=== PATIENT | female | born 1970 | race Caucasian/White ===

== ENCOUNTER → 2016-11-12 | Outpatient (CLI) | payer OTHER ==
--- NOTE | 2016-11-12 11:01 | RAD ---
DATE: 11/12/2016 EXAM: DIGITAL DIAGNOSTIC LT HISTORY: Left breast nipple discharge. COMPARISON: 02/20/2016 This study was interpreted with the benefit of Computerized Aided Detection (CAD). FINDINGS: MLO and CC digital mammograms left breast were obtained. Comparison study is dated 02/20/2016. The left breast parenchyma is heterogeneously dense which can obscure a lesion on mammography (breast density code C). Benign-appearing calcifications are seen within the left breast. No spiculated mass is seen. No malignant appearing calcification or area of architectural distortion is noted. IMPRESSION: BI-RADS Category 1, negative no mammographic evidence of malignancy. BI-RADS CATEGORY: 1 NEGATIVE RECOMMENDED FOLLOW-UP: 12M 12 MONTH FOLLOW-UP PQRS compliance statement: Patient information was entered into a reminder system with a target due date 02/19/2017 for the next mammogram. Mammography is a sensitive method for finding small breast cancers, but it does not detect them all and is not a substitute for careful clinical examination. A negative mammogram does not negate a clinically suspicious finding and should not result in delay in biopsying a clinically suspicious abnormality. "Our facility is accredited by the [employer] Mammography Program."
--- NOTE | 2016-11-12 11:31 | RAD ---
Ultrasound of the left breast 11/12/2016 Clinical history: Left nipple discharge. Technique: A real-time ultrasound examination of the retroareolar region of the left breast was performed. Multiple images were obtained. Findings: Comparison is made to the patient's diagnostic mammogram performed earlier today. No solid or cystic mass is seen within the visualized portions of the left breast by ultrasound. Mildly dilated ducts are seen in the retroareolar region. Impression: No solid or cystic mass is seen within the visualized portions of the left breast by ultrasound.
== END | disposition home or self-care (01) ==
LOC: MAMMO 10:32
DX: N64.52 Nipple discharge (principal)
CPT/HCPCS: 76641; G0206; 77065

== ENCOUNTER → 2016-11-12 | Outpatient (CLI) | payer OTHER ==
[2016-11-12 12:29] LABS: BASO % 1 % (0-3); EOS % 4 % (0-3); HEMATOCRIT 43.2 % (36.0-47.0); HEMOGLOBIN 14.5 g/dL (12.0-15.5); LYMPH # 1.7 x10^3/uL (1.0-4.8); LYMPH % 32 % (24-48); MEAN CORPUSCULAR HEMOGLOBIN 29 pg (25-35); MEAN CORPUSCULAR HGB CONC 34 g/dL (31-37); MEAN CORPUSCULAR VOLUME 86 fL (79-100); MONO % 10 % (0-9); NEUT % 54 % (31-73); PLATELET COUNT 191 x10^3/uL (140-400); RED BLOOD COUNT 5.03 x10^6/uL (3.50-5.40); RED CELL DISTRIBUTION WIDTH 15.1 % (11.5-14.5); WHITE BLOOD COUNT 5.3 x10^3/uL (4.0-11.0)
[2016-11-12 12:30] LABS: CALCIUM 9.1 mg/dL (8.5-10.1); CREATININE 0.9 mg/dL (0.6-1.0); GFR 67.4; POTASSIUM 4.4 mmol/L (3.5-5.1); TOTAL BILIRUBIN 0.7 mg/dL (0.2-1.0); TOTAL PROTEIN 7.9 g/dL (6.4-8.2)
[2016-11-12 12:31] LABS: CHOLESTEROL/HDL RATIO 2.3
[2016-11-12 17:17] LABS: ESTRADIOL LEVEL 54.5 pg/mL (.); FSH 26.8 mIU/mL (.); LUTEINIZING HORMONE 17.2 mIU/mL (.)
== END | disposition home or self-care (01) ==
LOC: LAB 11:18
DX: Z00.00 Encounter for general adult medical examination without abnormal findings (principal)
CPT/HCPCS: 36415; 80053; 80061; 82670; 83001; 83002; 84443; 85027

== ENCOUNTER → 2017-11-20 | Outpatient (CLI) | payer OTHER | END | disposition home or self-care (01) | LOC: MAMMO 08:23 | DX: Z12.31 Encounter for screening mammogram for malignant neoplasm of breast (principal) | CPT/HCPCS: 77063; 77067 ==

== ENCOUNTER → 2018-03-09 | Outpatient (CLI) | payer OTHER | END | disposition home or self-care (01) | LOC: US 08:53 | DX: N64.52 Nipple discharge (principal) | CPT/HCPCS: 76641 ==

== ENCOUNTER → 2018-06-10 | Outpatient (CLI) | payer OTHER ==
--- NOTE | 2018-06-10 08:45 | RAD ---
Left breast ultrasound, 06/10/2018: History: Follow-up abnormal duct, intermittent bloody discharge Comparison is made to a study from 03/09/2018. There are mildly dilated ducts in the retroareolar region. At the 12:00 location there is a filling defect of medium echogenicity within one of these ducts, best seen in the anterior radial plane. No definite internal color flow is seen within this process. A similar appearance was present on the previous study. The lack of interval change raises the possibility of a mass such as a polyp rather than a blood clot. No new abnormality is detected. IMPRESSION: Persistent filling defect in the duct at the 12:00 location as described above. Biopsy is suggested for further evaluation. This could be performed under ultrasound guidance or during duct exploration following needle localization. Note: The findings were discussed with the patient at the time of the exam and she is aware of the recommendation for biopsy. She will follow up with the ordering physician. BI-RADS 4-suspicious abnormality.
== END | disposition home or self-care (01) ==
LOC: US 07:42
DX: N64.52 Nipple discharge (principal)
CPT/HCPCS: 76641

== ENCOUNTER → 2018-07-17 | Outpatient (CLI) | payer OTHER ==
--- NOTE | 2018-07-21 12:08 | PATHOLOGY ---
[facility] Accession Number: [id number] . 01 Material submitted: . LEFT BREAST . 01 Clinical history: . Left breast abnormality . 02 Diagnosis: Breast, "left breast", needle core biopsies: - Papillary lesion measuring approximately 1 cm in greatest dimension. - Fibrocystic changes with usual ductal hyperplasia without atypia. See comment. . (SHA:forging press setter up; 07/20/2018) MBR/07/20/2018 . 02 Comment: The differential includes papilloma, however, atypical papillary lesions cannot be entirely excluded. Suggest clinical correlation and further evaluation if clinically indicated. . This case is also reviewed by Dr. Liliana Vanessa. . (SHA:forging press setter up; 07/20/2018) . 02 Electronically signed: . Jaswant Milian MD, Pathologist NPI- [id number] . 01 Gross description: . Received in formalin labeled "Paty Torres, left breast," are multiple needle cores of yellow-cisneros fibrofatty tissue measuring 2.0 x 1.6 x 0.4 cm in aggregate dimensions. The tissue submitted in its entirety in cassette A1 through A3. The cold ischemic time is 3 minutes. The total formalin fixation time is 8 hours and 29 minutes. (TSD; 07/17/2018) TOB/TOB . 02 Pathologist provided ICD-10: N60.12, N62 . 02 CPT . 929617 Specimen Comment: A courtesy copy of this report has been sent to Specimen Comment: [phone], , . Specimen Comment: Report sent to ,DR PATE / DR CHI Specimen Comment: A duplicate report has been generated due to demographic updates. Performed at: 01 [facility] [address] [facility] [address], [place] [id number] MD Braxton Robert MD Phone: [phone] Performed at: 02 [facility] [place] [address] [place] [id number] MD Heber Young MD Phone: [phone]
--- NOTE | 2018-07-27 08:42 | RAD ---
Ultrasound-guided left breast biopsy, 07/17/2018: History: Abnormal duct Previous studies demonstrated a suspicious retroareolar duct containing echogenic material. Today's scanning shows that this duct lies near the midline in the retroareolar region. Under local anesthesia, aseptic conditions and sonographic guidance the [facility] Medical biopsy instrument was passed into this process via a lateral approach. Multiple 12-gauge vacuum-assisted core samples were obtained and sent to pathology for evaluation. A biopsy marker was deposited at the biopsy site. The biopsy instrument was then removed and hemostasis obtained. Two-view postprocedural digital mammograms were then obtained to document position of the biopsy marker. The patient tolerated the procedure well and left the department in good condition. The subsequent pathology report indicated the presence of a papillary lesion, possibly a papilloma, although an atypical papillary lesion could not be excluded. This is considered to be concordant finding.
== END | disposition home or self-care (01) ==
LOC: US 13:10
PROVIDERS: ATTEND Surgery
DX: N60.12 Diffuse cystic mastopathy of left breast (principal)
CPT/HCPCS: 19083; 77065; 88305; C1713; 19081; 76942

== ENCOUNTER 2018-08-12 06:52 | Day surgery (SDC) | payer OTHER ==
[~2018-08-12] VITALS: Ht 162.6 cm; Wt 49.9 kg
[~2018-08-12 06:52] MED LIST: MULT1TAB52 PO
[2018-08-12] MEDS ORDERED: ONDANSETRON PF 4 MG/2 ML VIAL. IV PRN (07:00)
[2018-08-12] MEDS ORDERED: MORPHINE SULFATE 2 MG/ML VIAL. IV PRN (07:00)
[2018-08-12] MEDS ORDERED: LIDOCAINE 1% PF 2 ML VIAL. ID PRN (07:00)
[2018-08-12] MEDS ORDERED: IV RINGERS,LACTATED 1000ML 1,000 ML IV SCH (07:00)
[2018-08-12] MEDS ORDERED: PROCHLORPERAZINE 10 MG/2 ML VIAL. IV PRN (07:00)
[2018-08-12] MEDS ORDERED: fentaNYL PF VIAL 100 MCG/2 ML VIAL IV PRN ×2 (07:00)
[2018-08-12] MEDS ORDERED: HYDROmorphone 2 MG/ML VIAL IV PRN (07:00)
[2018-08-12] MEDS ORDERED: CHOL100013 PO (07:21)
[2018-08-12 07:31] LABS: U PREG PATIENT NEGATIVE (NEG)
[2018-08-12] MEDS ORDERED: LIDOCAINE WITH 8.4% SOD BICARB 3 ML DISP.SYRIN. INJ ONE (07:45)
[2018-08-12] MEDS ORDERED: LIDOCAINE 1%/EPI 1:100,000 20 ML VIAL. ONE (08:24)
[2018-08-12] MEDS ORDERED: BUPIVAC MPF-EPI 0.5%-1:200000 30 ML VIAL. ONE (08:24)
[2018-08-12] MEDS ORDERED: LIDOCAINE 2% PF Vial for OR 5 ML VIAL. ONE (08:27)
[2018-08-12] MEDS ORDERED: fentaNYL PF VIAL 100 MCG/2 ML VIAL ONE (08:27)
[2018-08-12] MEDS ORDERED: ONDANSETRON PF 4 MG/2 ML VIAL. ONE (08:27)
[2018-08-12] MEDS ORDERED: PROPOFOL 20 ML IV ONE (08:27)
[2018-08-12] MEDS ORDERED: DEXAMETHASONE SOD PHOS 20 MG/5 ML VIAL. ONE (08:27)
[2018-08-12] MEDS ORDERED: MIDAZOLAM HCL/PF 2 MG/2 ML VIAL. ONE (08:27)
--- NOTE | 2018-08-12 08:48 | RAD ---
Left breast needle localization, 08/12/2018: History: Papilloma We targeted the breast biopsy marker in the retroareolar region directly posterior to the nipple. Under local anesthesia, aseptic conditions and mammographic guidance a Kopan's needle with modified retention wire was passed into this region via a superior approach. The needle was removed and the final images show that the biopsy marker lies directly anterior to the distal aspect of the retention wire between its hook and the distal margin of the thickened portion of the wire approximately 3 cm deep to the skin surface. The patient tolerated the procedure well and was sent to surgery in good condition.
[2018-08-12] MEDS ORDERED: PHENYLEPHRINE in 0.9% NACL PF 1 MG/10 ML SYRINGE. IV ONE (09:08)
--- NOTE | 2018-08-12 10:18 | RAD ---
Left specimen mammogram #1, 08/12/2018: History: Papilloma A single digital mammogram of the surgical specimen from the left breast was obtained. No retention wire or biopsy marker is evident within the specimen. The specimen contains multiple scattered microcalcifications.
--- NOTE | 2018-08-12 10:32 | RAD ---
Left specimen mammogram #2, 08/12/2018: A digital mammogram of a second surgical specimen from the left breast was obtained. The biopsy marker lies within the specimen at the E7 level in the specimen container. Several scattered microcalcifications are also present.
--- NOTE | 2018-08-12 10:35 | PDOC4 ---
Operative Note Operative Note Operative Note: Preoperative Diagnosis: Left breast papillary lesion Postoperative Diagnosis: Same Procedure: Left breast excisional biopsy with needle localization Surgeon: Dereck Crown Ironer Operator: Philomena ROBLEDO Anesthesia: Gen. EBL: 25 mL Specimen: Left breast specimens to pathology Drains: None Complications: None Indication: The patient is a 47-year-old female who was found to have a left breast papillary lesion following a core needle biopsy. From the biopsy the lesion cannot be characterized in terms of atypical features. Based on this we advised for a wider excisional biopsy and needle localization will be required. The details and risks of surgery were discussed with the patient. Risks include bleeding, infection, pain, scar tissue, wound healing problems, potential need for additional surgery or procedure. She understands and would like to proceed. Description: The patient was taken the operating room and placed supine on the operating table. Gen. anesthesia was performed. Left breast was prepped with ChloraPrep and draped in a standard surgical manner. The wire was entering the skin at the junction of the areola in the superior aspect. A small curved incision was made in this location. The wire was directed inferiorly deep to the inferior aspect of the nipple. Sharp dissection was used to follow the wire to its termination. A generous excisional biopsy of tissue in the area was performed and sent to radiology. The specimen radiographs did not clearly identify the clip. C-arm evaluation of the left breast identified the clip. We were able to perform further dissection under guidance of fluoroscopy and eventually excised the area containing the clip. This was sent to radiology and specimen radiographs confirmed the presence of the clip. Hemostasis was achieved with cautery. No other abnormalities were identified. The skin was closed with 4-0 Monocryl and a Steri-Strip was applied. The patient tolerated the procedure well and was sent to the recovery room in stable condition. At the end of the case all counts were correct. CHERYL PATE MD Aug 12, 2018 10:35
--- NOTE | 2018-08-12 10:40 | DISCH ---
DISCHARGE INSTRUCTIONS Condition on Discharge Condition on Discharge: Stable Activity After Discharge Activity Instructions for Disc: Resume previous activity Diet after Discharge Diet after Discharge: Regular Wound Incision Care Wound/Incision Care: Other, see below (keep dressing clean and dry X 72 hours, may then remove and shower) Follow-Up Follow up with: Dr Pate in 1-2 weeks, call for appt [phone] CHERYL PATE MD Aug 12, 2018 10:40
[2018-08-12] MEDS ORDERED: HYDR-3164 PO (10:57)
[2018-08-12] MEDS ORDERED: HYDROcodone/APAP 5/325MG 1 TAB TABLET PO ONE (11:30)
[2018-08-12 12:30] VITALS: BP 106/61
--- NOTE | 2018-08-17 18:08 | PATHOLOGY ---
[facility] Accession Number: [id number] . 01 Material submitted: . PART A: LEFT BREAST TISSUE #1 PART B: LEFT BREAST TISSUE #2 PART C: LEFT BREAST TISSUE #3 . 01 Clinical history: . Papilloma left breast . 02 Diagnosis: A. Breast tissue, left breast tissue excision #1: - Small intraductal papilloma (2 mm). - Previous biopsy site changes showing focal fibrosis, hemosiderin-laden macrophages, and portion of biopsy site marker. - Fibrocystic changes. - Few microcalcifications identified. . B. Breast tissue, left breast tissue excision #2: - Previous biopsy site changes showing fibrosis, few hemosiderin-laden macrophages, and portion of biopsy site marker. - Fibrocystic changes. - Few microcalcifications identified. . C. Breast tissue, left breast tissue excision #3: - Fibrocystic changes with focal mild ductal epithelial hyperplasia without atypia. - Rare microcalcification identified. LBQ/08/17/2018 . 02 Comment: There is no atypia or evidence of malignancy. (JPM/db/master in chancery; 08/17/2018) . 02 Electronically signed: . Heber Young MD, Pathologist NPI- [id number] . 01 Gross description: . A. The specimen is received in formalin, labeled "Paty Torres, 1 left breast tissue" and consists of 2 segments of unoriented yellow-pagan fibroadipose tissue weighing 2 g and measuring 3.5 x 2.3 x 0.4 cm in aggregate. They are inked black and sectioned to reveal dense fibrous cut surfaces. The specimen is entirely submitted in A1-A4. The cold ischemic time is 20 minutes and the total formalin fixation time is greater than 6 hours but less than 72 hours. . B. The specimen is received in formalin, labeled "Paty Torres, 2 left breast tissue" and consists of an unoriented 1 g segment of yellow-pagan fibroadipose tissue measuring 2.2 x 1.8 x 0.3 cm. It is inked black and sectioned to reveal dense fibrous cut surfaces. The specimen is entirely submitted in B1-B2. The specimen was placed in formalin at 10:18 AM on 08/12/18 with no time in formalin provided. The cold ischemic time is unknown, and the specimen is removed from formalin at 6:50 PM on 08/13/18. . C. The specimen is received in formalin, labeled "Maged Torresen, 3 left breast tissue" and consists of 2 segments of yellow-pagan fibroadipose tissue weighing 1 g and measuring 1.9 x 1.8 x 0.8 cm. They're inked black and sectioned to reveal dense fibrous cut surfaces. They are entirely submitted in C1-C2. The cold ischemic time is 9 minutes and the total formalin fixation time is greater than 6 hours but less than 72 hours. (SDY; 08/13/2018) SYU/SYU . 02 Pathologist provided ICD-10: N60.12, N60.32, N62 . 02 CPT . 724808, 599069, 392872 Specimen Comment: A courtesy copy of this report has been sent to Specimen Comment: [phone], . Specimen Comment: Report sent to / DR CHI Performed at: 01 [facility] [address] [facility] [address], [place] [id number] MD Braxton Robert MD Phone: [phone] Performed at: 02 [facility] [address] [place], [place] [id number] MD Heber Young MD Phone: [phone]
== END 2018-08-12 12:43 | disposition home or self-care (01) ==
LOC: SURG 06:52
PROVIDERS: ATTEND Surgery
DX: D24.2 Benign neoplasm of left breast (principal); R92.0 Mammographic microcalcification found on diagnostic imaging of breast; N60.92 Unspecified benign mammary dysplasia of left breast; N60.12 Diffuse cystic mastopathy of left breast; N64.89 Other specified disorders of breast; Z80.0 Family history of malignant neoplasm of digestive organs; Z80.3 Family history of malignant neoplasm of breast; Z80.52 Family history of malignant neoplasm of bladder
CPT/HCPCS: 19281; 76000; 76098; 81025; J0690; J1100; J2001; J2250; J2370; J2405; J2704; J3010; J3490; J7120

== ENCOUNTER → 2021-02-08 | Outpatient (CLI) | payer OTHER ==
[~2021-02-08] MED LIST changes: +CHOL100013 PO; +HYDR-3164 PO; +MULT-445 PO; -MULT1TAB52 PO
--- NOTE | 2021-02-08 14:48 | RAD ---
DATE: 02/08/2021 EXAM: MAMMO EVON DIAG BILAT HISTORY: Follow-up from papilloma excision. COMPARISON: 07/17/2018, 11/20/2017, 11/12/2016, 02/20/2016 and 02/10/2015 This study was interpreted with the benefit of Computerized Aided Detection (CAD). Breast Density: HETERO The breast parenchyma is heterogenously dense, which could reduce sensitivity of mammography. Breast parenchyma level C. FINDINGS: No mass, suspicious calcification, or architectural distortion in either breast. IMPRESSION: No evidence of malignancy. BI-RADS CATEGORY: 1 NEGATIVE RECOMMENDED FOLLOW-UP: 12M 12 MONTH FOLLOW-UP PQRS compliance statement: Patient information was entered into a reminder system with a target due date for the next mammogram. Mammography is a sensitive method for finding small breast cancers, but it does not detect them all and is not a substitute for careful clinical examination. A negative mammogram does not negate a clinically suspicious finding and should not result in delay in biopsying a clinically suspicious abnormality. "Our facility is accredited by the [employer] Mammography Program."
== END ==
LOC: MAMMO 13:22
PROVIDERS: ATTEND Family Medicine
DX: R92.2 Inconclusive mammogram (principal)
CPT/HCPCS: 77066; G0279; 77062

== ENCOUNTER → 2021-03-21 | Day surgery (SDC) | payer OTHER ==
[~2021-03-21] VITALS: Ht 161.3 cm; Wt 50.0 kg
[~2021-03-21] MED LIST changes: +LIDOCAINE 2% PF 5 ML VIAL. ONE; +PROPOFOL 10 MG/ML (20ML) VIAL. IV ONE
[2021-03-21 08:36] VITALS: BP 130/62
[2021-03-21] MEDS: IV RINGERS,LACTATED 1000ML 1,000 ML IV ONE (08:40)
[2021-03-21 09:52] VITALS: BP 99/56
--- NOTE | 2021-03-22 06:01 | HP ---
ADMIT DATE: 03/21/2021 REFERRING PHYSICIAN: Thierry Issa MD REASON: Colorectal screening. HISTORY OF PRESENT ILLNESS: A 50-year-old female seen for colorectal screening. Bowel habits are regular without diarrhea or constipation. There has been no melena or hematochezia. Family history is positive for colon cancer in maternal grandmother in her 60s. Otherwise without additional complaints. PAST MEDICAL HISTORY: Significant for osteoarthritis. ALLERGIES: None. MEDICATIONS: Include vitamin D3, multivitamin. FAMILY HISTORY: Significant for colon cancer in a grandmother and grandfather with pancreatic cancer in his father. Nonsmoker and nondrinker. PAST SURGICAL HISTORY: Status post breast surgery and eye surgery. REVIEW OF SYSTEMS: Per records. PHYSICAL EXAMINATION: GENERAL: Reveals a well-nourished, well-developed female, alert, cooperative, no acute distress. LUNGS: Clear. CARDIAC: S1, S2, without S3, S4 or appreciable murmur. ABDOMEN: Soft abdomen, normal bowel sounds, without appreciable hepatosplenomegaly. EXTREMITIES: No cyanosis, clubbing or edema. IMPRESSION: Colorectal screening. Risks and benefits of procedure including and perforation with operation were discussed. The patient is willing to proceed at this time. DORA/ROYAL DR: Geoffrey TID: [id number]
== END | disposition home or self-care (01) ==
LOC: ENDOS 08:03
PROVIDERS: ATTEND Internal Medicine Gastroenterology
DX: Z12.11 Encounter for screening for malignant neoplasm of colon (principal); K64.0 First degree hemorrhoids; K63.89 Other specified diseases of intestine; M19.90 Unspecified osteoarthritis, unspecified site; Z79.899 Other long term (current) drug therapy; Z80.0 Family history of malignant neoplasm of digestive organs; Z98.890 Other specified postprocedural states; Z20.822 Contact with and (suspected) exposure to COVID-19
CPT/HCPCS: 45378; 81025; 87426; J2704

== ENCOUNTER 2022-01-12 06:00 | Emergency (ER) | payer OTHER ==
[~2022-01-12] VITALS: Ht 160 cm; Wt 51.3 kg
[~2022-01-12 06:00] MED LIST changes: -LIDOCAINE 2% PF 5 ML VIAL. ONE; -PROPOFOL 10 MG/ML (20ML) VIAL. IV ONE
--- NOTE | 2022-01-12 06:32 | EKG ---
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
[2022-01-12 06:40] LABS: BASO % 0 % (0-3); EOS # 0.6 x10^3/uL (0.0-0.7); EOS % 8 % (0-3); HEMATOCRIT 44.9 % (36.0-47.0); HEMOGLOBIN 15.2 g/dL (12.0-15.5); LYMPH # 2.7 x10^3/uL (1.0-4.8); LYMPH % 36 % (24-48); MEAN CORPUSCULAR HEMOGLOBIN 31 pg (25-35); MEAN CORPUSCULAR HGB CONC 34 g/dL (31-37); MEAN CORPUSCULAR VOLUME 92 fL (79-100); MONO # 0.6 x10^3/uL (0.0-1.1); MONO % 9 % (0-9); NEUT # 3.6 x10^3/uL (1.8-7.7); NEUT % 47 % (31-73); PLATELET COUNT 189 x10^3/uL (140-400); RED BLOOD COUNT 4.87 x10^6/uL (3.50-5.40); RED CELL DISTRIBUTION WIDTH 13.3 % (11.5-14.5); WHITE BLOOD COUNT 7.6 x10^3/uL (4.0-11.0)
[2022-01-12 06:54] LABS: CREATININE 0.9 mg/dL (0.6-1.0); POTASSIUM 3.5 mmol/L (3.5-5.1)
--- NOTE | 2022-01-12 07:07 | RAD ---
INDICATION: Shortness of breath COMPARISON: None. FINDINGS: 2 view of chest obtained. Cardiac silhouette is unremarkable. There are some mild scoliotic curvature of the spine. No definite focal airspace consolidation or pulmonary edema. IMPRESSION: * No focal airspace consolidation or edema. Electronically signed by: Clay Solorzano MD (01/12/2022 7:05 AM) [id number]
[2022-01-12] MEDS ORDERED: ASPIRIN CHEWABLE 81 MG TABLET. PO ONE (08:15)
[2022-01-12 11:51] VITALS: BP 106/62
--- NOTE | 2022-01-12 11:55 | PHYS DOC ---
Past Medical History Past Surgical History: No Surgical History Smoking Status: Never Smoker Alcohol Use: None General Adult EDM: Chief Complaint: CHEST PAIN HPI: HPI: Patient is a 51-year-old female who presents with chest pain. Onset earlier today. Cuervo like a pressure like sensation with radiation to left arm. She denies any history of hypertension diabetes or hyperlipidemia. Denies any history of CAD. Sees her PCP regularly and had her annual checkup not too long ago. No vomiting or diarrhea. Chest pain is now gone. No known aggravating or relieving factors. No cough or sputum production. No recent prolonged immobilization. Review of Systems: Review of Systems: Constitutional: Denies fever or chills. [] Eyes: Denies change in visual acuity. [] HENT: Denies nasal congestion or sore throat. [] Respiratory: Denies cough or shortness of breath. [] Cardiovascular: Positive for chest pain GI: Denies abdominal pain, nausea, vomiting, bloody stools or diarrhea. [] : Denies dysuria. [] Musculoskeletal: Denies back pain or joint pain. [] Integument: Denies rash. [] Neurologic: Denies headache, focal weakness or sensory changes. [] Endocrine: Denies polyuria or polydipsia. [] Lymphatic: Denies swollen glands. [] Psychiatric: Denies depression or anxiety. [] Heart Score: C/O Chest Pain: Yes HEART Score for Chest Pain: HEART Score for Chest Pain Response (Comments) Value History Moderately Suspicious 1 ECG Normal 0 Age >45 - < 65 1 Risk Factors No Risk Factors 0 Troponin < Normal Limit 0 Total 2 Risk Factors: Risk Factors: DM, Current or recent (<one month) smoker, HTN, HLP, family history of CAD, obesity. Risk Scores: Score 0 - 3: 2.5% MACE over next 6 weeks - Discharge Home Score 4 - 6: 20.3% MACE over next 6 weeks - Admit for Clinical Observation Score 7 - 10: 72.7% MACE over next 6 weeks - Early Invasive Strategies Current Medications: Current Medications Medications (Trade) Dose Ordered Sig/Eyal Start Time Stop Time Status Last Admin Dose Admin Aspirin (Aspirin Chewable) 324 mg 1X ONCE 01/12/22 08:15 01/12/22 08:16 DC 01/12/22 08:07 324 MG Allergies: Allergies: Allergies Coded Allergies Type Severity Reaction Last Updated Verified No Known Drug Allergies 7/14/21 No Physical Exam: PE: Constitutional: Well developed, well nourished, no acute distress, non-toxic appearance. [] HENT: Normocephalic, atraumatic, bilateral external ears normal, oropharynx moist, no oral exudates, nose normal. [] Eyes: PERRLA, EOMI, conjunctiva normal, no discharge. [] Neck: Normal range of motion, no tenderness, supple, no stridor. [] Cardiovascular:Heart rate regular rhythm, no murmur [] Lungs & Thorax: Bilateral breath sounds clear to auscultation [] Abdomen: Bowel sounds normal, soft, no tenderness, no masses, no pulsatile masses. [] Skin: Warm, dry, no erythema, no rash. [] Back: No tenderness, no CVA tenderness. [] Extremities: No tenderness, no cyanosis, no clubbing, ROM intact, no edema. [] Neurologic: Alert and oriented X 3, normal motor function, normal sensory function, no focal deficits noted. [] Psychologic: Affect normal, judgement normal, mood normal. [] Current Patient Data: Labs: Laboratory Tests Test 01/12/22 06:16 01/12/22 07:15 01/12/22 09:40 White Blood Count 7.6 x10^3/uL (4.0-11.0) Red Blood Count 4.87 x10^6/uL (3.50-5.40) Hemoglobin 15.2 g/dL (12.0-15.5) Hematocrit 44.9 % (36.0-47.0) Mean Corpuscular Volume 92 fL (79-100) Mean Corpuscular Hemoglobin 31 pg (25-35) Mean Corpuscular Hemoglobin Concent 34 g/dL (31-37) Red Cell Distribution Width 13.3 % (11.5-14.5) Platelet Count 189 x10^3/uL (140-400) Neutrophils (%) (Auto) 47 % (31-73) Lymphocytes (%) (Auto) 36 % (24-48) Monocytes (%) (Auto) 9 % (0-9) Eosinophils (%) (Auto) 8 % (0-3) H Basophils (%) (Auto) 0 % (0-3) Neutrophils # (Auto) 3.6 x10^3/uL (1.8-7.7) Lymphocytes # (Auto) 2.7 x10^3/uL (1.0-4.8) Monocytes # (Auto) 0.6 x10^3/uL (0.0-1.1) Eosinophils # (Auto) 0.6 x10^3/uL (0.0-0.7) Basophils # (Auto) 0.0 x10^3/uL (0.0-0.2) Sodium Level 142 mmol/L (136-145) Potassium Level 3.5 mmol/L (3.5-5.1) Chloride Level 104 mmol/L (98-107) Carbon Dioxide Level 27 mmol/L (21-32) Anion Gap 11 (6-14) Blood Urea Nitrogen 9 mg/dL (7-20) Creatinine 0.9 mg/dL (0.6-1.0) Estimated GFR (Cockcroft-Gault) 66.0 Glucose Level 86 mg/dL (70-99) Calcium Level 9.0 mg/dL (8.5-10.1) D-Dimer (Suzanne) 0.27 ug/mlFEU (0.00-0.50) Troponin I High Sensitivity 8 ng/L (4-50) 8 ng/L (4-50) Laboratory Tests 01/12/22 06:16 Laboratory Tests 01/12/22 06:16 Vital Signs: Vital Signs Date Time Temp Pulse Resp B/P (MAP) Pulse Ox O2 Delivery O2 Flow Rate FiO2 01/12/22 10:00 68 21 111/59 (76) 98 01/12/22 06:11 98.1 Room Air 98.1 EKG: EKG: Normal sinus rhythm rate of [address] changes or T wave inversions Radiology/Procedures: Radiology/Procedures: [] Course & Med Decision Making: Course & Med Decision Making Pertinent Labs and Imaging studies reviewed. (See chart for details) Heart score is less than 3. Patient has no cardiac risk factors but does have a good story. Currently chest pain-free. Advised her to have prompt follow-up with our armored machine operator or her PCP for outpatient cardiac testing. We will give proper return precautions. Dragon Disclaimer: Dragon Disclaimer: This electronic medical record was generated, in whole or in part, using a voice recognition dictation system. Departure Departure Impression: Primary Impression: Chest pain, atypical Disposition: HOME / SELF CARE / HOMELESS Referrals: STEVE CHI (PCP) JEFE HUGGINS MD Patient Instructions: Chest Pain (Nonspecific)-Brief Additional Instructions: Please be sure to follow-up with cardiology. If your insurance allows it. However if it does not please your primary care doctor to arrange follow-up outp atient stress testing SUKH GIL MD January 12, 2022 11:55
--- NOTE | 2022-01-12 21:30 | EKG ---
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
== END 2022-01-12 11:54 | disposition home or self-care (01) ==
LOC: ER 06:00
DX: R07.89 Other chest pain (principal)
CPT/HCPCS: 36415; 71046; 80048; 84484; 85025; 85379; 93005; 99285